=== PATIENT | male | born 1995 | race Caucasian/White ===

== ENCOUNTER 2019-03-09 20:58 | Emergency (ER) | payer BC ==
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
== END 2019-03-09 23:56 | disposition home or self-care (01) ==
LOC: ERS 20:58
DX: S09.90XA Unspecified injury of head, initial encounter (principal); F17.210 Nicotine dependence, cigarettes, uncomplicated; W18.30XA Fall on same level, unspecified, initial encounter
CPT/HCPCS: 70450; 72125